=== PATIENT | male | born 1960 | race Two or more races ===

== ENCOUNTER 2020-08-10 13:22 | Emergency (ER) | payer SELFPAY ==
[2020-08-10 13:32] VITALS: BP 185/103
--- NOTE | 2020-08-10 13:44 | ER Document Report ---
ED Medical Screen (RME) - General Chief Complaint: Urinary Problem Stated Complaint: URINARY PROBLEMS Time Seen by Provider: 08/10/20 13:35 Mode of Arrival: Ambulatory Information source: Patient Notes: 59-year-old male presented to ED for urinary frequency and having to force his urination out. He is here with his sister today. The patient is deaf and blind he is also autistic intellectually challenged has a history of diabetes type 2 and high blood pressure. Sister states once in a while maybe once a week they will give him a part of a beer or some Kim[employer] in his ice cream but is not really a drinker. She states once in a while he will going to a friend food writer and get someone know what he is looking but normally he does not drink smoke or use any illicit drugs. Patient does not answer any of the questions. Sister states he just moved here from [place] because the mother had to move and so the he came with and now he is living with his sister. Sister is requesting a prostate exam when he gets to a room she thinks that was causing his urinary problems. I have greeted and performed a rapid initial assessment of this patient. A comprehensive ED assessment and evaluation of the patient, analysis of test results and completion of medical decision making process will be conducted by an additional ED providers. TRAVEL OUTSIDE OF THE [place] IN LAST 30 DAYS: No - Related Data Allergies/Adverse Reactions: No Known Allergies Allergy (Verified 08/10/20 13:34) Past Medical History - Social History Frequency of alcohol use: Occasional Drug Abuse: None Physical Exam - Vital signs Vitals: Temp Pulse Resp BP Pulse Ox 97.7 F 106 H 18 185/103 H 98 08/10/20 13:08/10/20 13:08/10/20 13:08/10/20 13:29 08/10/20 13:29 Course - Vital Signs Vital signs: Temp Pulse Resp BP Pulse Ox 97.7 F 106 H 18 185/103 H 98 08/10/20 13:29 08/10/20 13:29 08/10/20 13:29 08/10/20 13:29 08/10/20 13:29
[2020-08-10] MEDS ORDERED: NORMAL SALINE 1000 ML 1,000 ML IV ONE (14:00)
[2020-08-10 14:09] LABS: ABSOLUTE BASOPHILS # (AUTO) 0.1 10^3/uL (0.0-0.2); ABSOLUTE EOSINOPHILS # (AUTO) 0.2 10^3/uL (0.0-0.6); ABSOLUTE LYMPHOCYTES (AUTO) 3.1 10^3/uL (0.5-4.7); ABSOLUTE MONOCYTES (AUTO) 0.7 10^3/uL (0.1-1.4); ABSOLUTE NEUT (AUTO) 5.4 10^3/uL (1.7-8.2); BASOPHILS % (AUTO) 0.5 % (0-2); EOSINOPHILS % (AUTO) 2.5 % (0-6); HEMATOCRIT 40.7 % (37.9-51.0); HEMOGLOBIN 13.3 g/dL (13.5-17.0); LYMPHOCYTES % (AUTO) 32.3 % (13-45); MEAN CORPUSCULAR HGB CONC 32.7 g/dL (32.0-36.0); MEAN CORPUSCULAR VOLUME 89 fl (80-97); MONOCYTES % (AUTO) 7.6 % (3-13); PLATELET COUNT 276 10^3/uL (150-450); RED BLOOD COUNT 4.58 10^6/uL (4.35-5.55); RED CELL DISTRIBUTION WIDTH 12.7 % (11.5-14.0); SEGMENTED NEUTROPHILS % (AUTO) 57.1 % (42-78); TOTAL CELLS COUNTED % (AUTO) 100 %; WHITE BLOOD COUNT 9.5 10^3/uL (4.0-10.5)
[2020-08-10 14:15] LABS: APPEARANCE,URINE CLEAR; BILIRUBIN,URINE NEGATIVE (NEGATIVE); COLOR,URINE STRAW; GLUCOSE, URINE >=500 mg/dL (NEGATIVE); KETONES,URINE NEGATIVE (NEGATIVE); LEUKOCYTE ESTERASE,URINE NEGATIVE (NEGATIVE); NITRITE,URINE NEGATIVE (NEGATIVE); PROTEIN,URINE 30 mg/dL (NEGATIVE); URINE SPECIFIC GRAVITY 1.024; UROBILINOGEN,URINE NEGATIVE mg/dL (<2.0)
[2020-08-10 14:26] LABS: ALBUMIN 4.8 g/dL (3.5-5.0); ALKALINE PHOSPHATASE 135 U/L (38-126); ANION GAP 12 (5-19); ASPARTATE AMINO TRANSFERASE 33 U/L (17-59); BILIRUBIN,DIRECT 0.3 mg/dL (0.0-0.4); BILIRUBIN,TOTAL 0.5 mg/dL (0.2-1.3); BLOOD UREA NITROGEN 20 mg/dL (7-20); CALCIUM 10.3 mg/dL (8.4-10.2); CARBON DIOXIDE 26 mmol/L (22-30); CHLORIDE 96 mmol/L (98-107); POTASSIUM 4.8 mmol/L (3.6-5.0); TOTAL PROTEIN 8.3 g/dL (6.3-8.2)
[2020-08-10 14:43] LABS: GLUCOSE 674 mg/dL (75-110)
[2020-08-10] MEDS ORDERED: INSULIN REG, HUMAN 100 UNIT/ML 3 ML VIAL (PYX) SUBCUT ONE (15:32)
--- NOTE | 2020-08-10 15:38 | ER Document Report ---
ED General - General Chief Complaint: Urinary Problem Stated Complaint: URINARY PROBLEMS Time Seen by Provider: 08/10/20 13:35 Primary Care Provider: EMILIANO WALTERS MD [COMMUNITY BASED STAFF] - Follow up tomorrow Mode of Arrival: Ambulatory Information source: Relative - sister TRAVEL OUTSIDE OF THE [place] IN LAST 30 DAYS: No - HPI Notes: Patient is autistic and brought in by family. The sister is in the room. Sister states that this is her brother and she brought him from [place]. She states he is diabetic but they did not bring his meter with him to check his sugars. They state that they have not been checking his sugars over the last several weeks. They also state the patient is to be on metformin but they have decided that they do not believe this medicine is safe so they have stopped giving metformin to him. The sister states she would like a different medicine than metformin. She states she also noticed yesterday that her brother was "grunting" when he urinated and that he was urinating a lot. She states she brought him in today to "have him checked out". No vomiting or diarrhea. He has been eating a lot of pasta lately per the sister. No fevers. She states behaviors have been normal other than the "grunting" with urination. Patient symptoms have been intermittent. Nothing appears make better or worse. No known radiation of symptoms. Patient is autistic and cannot characterize the symptoms. - Related Data Allergies/Adverse Reactions: No Known Allergies Allergy (Verified 08/10/20 15:00) Past Medical History - General Information source: Relative - Social History Smoking Status: Never Smoker Frequency of alcohol use: Occasional Drug Abuse: None Family History: Reviewed & Not Pertinent Review of Systems - Review of Systems -: Yes ROS unobtainable due to patient's medical condition - Patient is autistic and unable to contribute to history Physical Exam - Vital signs Vitals: Temp Pulse Resp BP Pulse Ox 97.7 F 106 H 18 185/103 H 98 08/10/20 13:29 08/10/20 13:29 08/10/20 13:29 08/10/20 13:29 08/10/20 13:29 Interpretation: Hypertensive - General General appearance: Appears well, Alert In distress: None - HEENT Head: Normocephalic, Atraumatic Eyes: Normal Pupils: PERRL - Respiratory Respiratory status: No respiratory distress Chest status: Nontender Breath sounds: Normal Chest palpation: Normal - Cardiovascular Rhythm: Regular - Patient was tachycardic at triage but is not tachycardic for me. Heart sounds: Normal auscultation Murmur: No - Abdominal Inspection: Normal Distension: No distension Bowel sounds: Normal Tenderness: Nontender Organomegaly: No organomegaly, Other - Patient does not have a palpable bladder. He does not appear tender suprapubically. I tried to obtain an ultrasound of the bladder however patient would not tolerate this and yelled and pulled the ultrasound probe in my hand away repeatedly. Despite the assistance of nurse and family were unable to obtain an ultrasound of the abdomen. - Back Back: Normal, Nontender - Extremities General upper extremity: Normal inspection, Nontender, Normal color, Normal ROM, Normal temperature General lower extremity: Normal inspection, Nontender, Normal color, Normal ROM, Normal temperature, Normal weight bearing. No: Genevieve's sign - Neurological Cognition: Confused Carlos Coma Scale Eye Opening: Spontaneous Carlos Coma Scale Verbal: Incomprehensible Carlos Coma Scale Motor: Obeys Commands [place] Coma Scale Total: 12 Motor strength normal: LUE, RUE, LLE, RLE Sensory: Normal - Psychological Associated symptoms: Combative, Confused - Skin Skin Temperature: Warm Skin Moisture: Dry Skin Color: Normal Course - Re-evaluation Re-evalutation: 08/10/20 15:36 Patient is a diabetic who is been brought in here by family. They are no longer giving him his metformin and they are not checking his blood sugars. They are also not monitoring his diet. His blood sugar significantly elevated at 674. Patient will not tolerate an IV and is very combative. At this time my choices were to physically restrain the patient and sedate him for an IV or to have the family try to get the patient to increase his p.o. intake. Since patient appears to be at his mental baseline I thought it is reasonable to try p.o.'s and have the family bring the patient back tomorrow for a recheck of his blood glucose. I will also give the patient some subcu insulin. In addition I will start him on a sulfonylurea since they prefer not to give metformin. I am also going to have the patient referred to a primary care doctor. I am also giving the family information about carbohydrate control and carbohydrate intake in [facility] of his diabetes. I felt that the above approach was a reasonable and better approach than trying to forcibly restrain and sedate the patient it was also at the family preferred. 08/10/20 15:44 I have also had Félix Jon discuss options with family concerning follow up - Vital Signs Vital signs: Temp Pulse Resp BP Pulse Ox 97.7 F 106 H 18 185/103 H 98 08/10/20 13:29 08/10/20 13:29 08/10/20 13:29 08/10/20 13:29 08/10/20 13:29 - Laboratory Result Diagrams: 08/10/20 13:55 08/10/20 13:55 Laboratory results interpreted by me: 08/10/20 08/10/20 08/10/20 13:55 13:55 13:55 Hgb 13.3 L Sodium 134.1 L Chloride 96 L Glucose 674 H* Calcium 10.3 H Alkaline Phosphatase 135 H Total Protein 8.3 H Urine Protein 30 H Urine Glucose (UA) >=500 H Urine Blood SMALL H Discharge - Discharge Clinical Impression: Hyperglycemia due to diabetes mellitus, Uncontrolled hypertension Condition: Stable Disposition: HOME, SELF-CARE Instructions: Diabetes ([facility]) Additional Instructions: Please call a family physician as soon as possible to arrange follow up. Manpreet needs his sugars monitored 4 times per day. Please obtain a meter as soon as possible. Please have Manpreet see a medical provider tomorrow to have his blood sugar (glucose) rechecked. Please use glipizide as prescribed. Please seek help from a medical provider immediately if Manpreet has a change of mental status such as being hard to arouse or less alert. Prescriptions: Glipizide [Glucotrol 5 mg Tablet] 5 mg PO DAILY 30 Days #30 tablet Amlodipine Besylate [Norvasc 5 mg Tablet] 5 mg PO DAILY #30 tablet Referrals: EMILIANO WALTERS MD [COMMUNITY BASED STAFF] - Follow up tomorrow
== END 2020-08-10 16:18 | disposition home or self-care (01) ==
LOC: ER 13:22
DX: E11.65 Type 2 diabetes mellitus with hyperglycemia (principal); T38.3X6A Underdosing of insulin and oral hypoglycemic [antidiabetic] drugs, initial encounter; Z91.14 Patient's other noncompliance with medication regimen; R35.0 Frequency of micturition; I10 Essential (primary) hypertension; F84.0 Autistic disorder
CPT/HCPCS: 99284; 96372; 36415; 87086; 85025; 80053; 81001; J1815